=== PATIENT | female | born 1985 | race Hispanic/Latino ===

== ENCOUNTER 2025-09-03 09:56 | Emergency (ER) | payer SELFPAY ==
[~2025-09-03] VITALS: Ht 152.4 cm; Wt 64.9 kg
--- NOTE | 2025-09-03 10:05 | ERN ---
General Chief Complaint: Vaginal Bleeding Stated Complaint: VAG BLEED Time Seen by MD: 09:58 Source: patient History of Present Illness Initial Comments Patient is a 40 year old female coming in with a vaginal bleed and abdominal discomfort. Patient states that she is a at possible six weeks by last menstruations. She states that she has been noticing some spotting for the last two days this morning she presented with a even more discomfort in the lower abdominal region so she is here for further evaluation. Patient has not been seen by an OBGYN yet. Allergies: Coded Allergies: No Known Drug Allergies (Unverified Allergy, Unknown, 09/03/25) ROS Dictation CONSTITUTIONAL: No chills, no fever, no weakness, no diaphoresis, no malaise. HEAD/FACE: No signs of trauma. EENT: No eye pain, no blurred vision, no tearing, no double vision, no ear pain, no ear discharge, no nose pain, no nasal congestion, no throat pain, no throat swelling, no mouth pain. RESPIRATORY: No cough, no orthopnea, no SOB, no stridor, no wheezing. CARDIOVASCULAR: No chest pain, no edema, no palpitations, no syncope. GASTROINTESTINAL/ABDOMINAL: abdominal pain, no constipation, no diarrhea, no nausea, no vomiting. GENITOURINARY: No abnormal discharge, no dysuria, no frequent urination, no hematuria. No complaints of pain in the genitals. MUSCULOSKELETAL: No back pain, no gout, no joint pain, no joint swelling, no muscle pain, no muscle stiffness, no neck pain. INTEGUMENTARY: No change in color, no change in hair/nails, no dryness, no lesion, no lumps, no rash. NEUROLOGICAL/PSYCH: No anxiety, not depressed, no emotional problem, no headache, no numbness, no pre-existing deficit, no history of seizures, no tr emors, no weakness. HEMATOLOGIC/LYMPHATIC: Not anemic, no history of blood clots, no apparent bleeding, no bruising, glands not swollen. All Systems Negative, Except as Noted. Physical Exam Physical Exam Dictation VITAL SIGNS: Reviewed. GENERAL APPEARANCE: Alert, oriented x3, no acute distress, obese. HEAD AND FACE: Non-traumatic. EYES: PERRL, pink conjunctivas, eyelid no trauma, anterior chamber clear. EARS: Pinnas intact and no signs of trauma or erythema. Ear canals clear and no discharge. TMs no erythema. NOSE: No discharge, no bleeding. OROPHARYNX: Mouth normal, teeth no caries, tongue pink. Pharynx clear, no erythema. Tonsils no exudates, no abscesses noted. Mucous membrane moist. NECK: Supple, non-tender, no thyromegaly, no masses, no JVD, no bruits. BREAST: Deferred. CHEST: No tenderness, no crepitus, no paradoxical movement, no retractions. LUNGS: Clear, well-ventilated, symmetric, no rales, no wheezing, no rhonchi, no stridor, good breath sounds bilaterally. HEART: Regular rate, regular rhythm, no murmur, no gallops. VASCULAR: No peripheral edema. ABDOMEN: Soft, positive bowel sounds, nondistended, no guarding, nontender, no rebound, no masses no hepatomegaly, no splenomegaly, no Bonds's sign, no hernias. RECTAL: Deferred. GENITAL: Deferred. NEUROLOGICAL: Normal speech, gross motor function intact, gross sensory function intact. MUSCULOSKELETAL: Neck nontender, full range of motion, back nontender, full range of motion. EXTREMITIES: Nontender, full range of motion. SKIN: Color pink, dry, no turgor, no rash, no lacerations, no abrasions, no contusions. LYMPHATICS: Deferred. Results Laboratory and Microbiology Lab and Micro Result Laboratory Tests Test 09/03/25 10:20 09/03/25 10:37 White Blood Count 10.2 K/uL (4.8-10.8) Red Blood Count 4.87 MIL/uL (4.00-5.50) Hemoglobin 14.2 g/dL (12.0-16.0) Hematocrit 43.9 % (36-48) Mean Corpuscular Volume 90.1 fL (79-99) Mean Corpuscular Hemoglobin 29.2 pg (27.0-33.0) Mean Corpuscular Hemoglobin Concent 32.3 g/dL (32.0-36.0) Red Cell Distribution Width 12.4 % (11.0-15.5) Platelet Count 348 K/uL (130-400) Mean Platelet Volume 10.2 fL (7.5-10.5) Immature Granulocyte % (Auto) 0.5 % (0-1) Neutrophils (%) (Auto) 71.9 % (40.0-77.0) Lymphocytes (%) (Auto) 16.8 % (21.0-51.0) L Monocytes (%) (Auto) 10.0 % (3.0-13.0) Eosinophils (%) (Auto) 0.3 % (0.0-8.0) Basophils (%) (Auto) 0.5 % (0.0-5.0) Neutrophils # (Auto) 7.3 K/uL (1.8-7.7) Lymphocytes # (Auto) 1.7 K/uL (1.0-4.8) Monocytes # (Auto) 1.0 K/uL (0.1-1.0) Eosinophils # (Auto) 0.03 K/uL (0.00-0.70) Basophils # (Auto) 0.05 K/uL (0.00-0.20) Absolute Immature Granulocyte (auto 0.05 K/uL (0-1) Nucleated Red Blood Cells 0.0 % (0.0-0.19) Sodium Level 136 mmol/L (136-145) Potassium Level 3.3 mmol/L (3.5-5.1) L Chloride Level 100 mmol/L (101-111) L Carbon Dioxide Level 30 mmol/L (21-32) Blood Urea Nitrogen 8 mg/dL (7-18) Creatinine 0.8 mg/dL (0.5-1.0) Glomerular Filtration Rate Calc 97 mL/min (>90) Random Glucose 84 mg/dL (70-105) Total Calcium 9.6 mg/dL (8.5-10.1) Human Chorionic Gonadotropin, Quant 72722 mIU/mL (0-5) H Urine Color YELLOW (YELLOW) Urine Appearance CLOUDY (CLEAR) H Urine pH 6.5 (5.0-8.0) Urine Specific [place] 1.019 (1.001-1.031) Urine Protein NEGATIVE mg/dL (NEGATIVE) Urine Glucose (UA) NEGATIVE mg/dL (NEGATIVE) Urine Ketones NEGATIVE mg/dL (NEGATIVE) Urine Occult Blood SMALL (NEGATIVE) H Urine Nitrate NEGATIVE (NEGATIVE) Urine Bilirubin NEGATIVE mg/dL (NEGATIVE) Urine Urobilinogen 0.2 mg/dL (0.2-1.0) Urine Leukocyte Esterase NEGATIVE [place]/uL Urine RBC 2-5 /HPF (0-1) H Urine WBC 0-1 /HPF (0-1) Urine Squamous Epithelial Cells FEW /HPF (0-2) Urine Amorphous Crystals (Auto) RARE /LPF (None Seen) Urine Bacteria Few /HPF (None Seen) Urine HCG, Qualitative POSITIVE (NEGATIVE) H Labs Reviewed?: Yes EKG/XRAY/US/CT/MRI EKG Comment 09/03/2025 time 11:06 a.m. Ventricular rate 69 Sinus rhythm [place] [address] wave elevation or depression MDM MDM: Differential diagnosis: Threatened miscarriage, miscarriage, early , Rationale: Tests considered and ordered secondary to shared decision making include: Previous outside records reviewed: Old ER visits. Risk of complication and/or morbidity or mortality of patient management: None Medications-Per medication reconciliation Need for hospitalization: Patient does not meet criteria for hospitalization. Need for emergency major/minor surgery: No Patient is a 40-year-old female coming in complaining of lower abdominal discomfort. Patient found out recently that she was . Ultrasound disclose an IUP possible six weeks gestation. Patient is feeling better symptoms have improved. Patient will be discharged in stable condition I did advise her abstaining from lifting anything heavy abstaining from sexual intercourse until evaluated by her PCP in his case her OBGYN. Patient will be discharged in stable condition with a diagnosis of early , threatened miscarriage. ED Course Orders Procedure Category Date Status Time Cbc With Differential LAB 09/03/25 Complete 10:02 Hcg,Quantitative LAB 09/03/25 Complete 10:02 ,Urine Test LAB 09/03/25 Complete 10:02 Urinalysis Profile LAB 09/03/25 Complete 10:02 12 Lead Ekg Tracing- EKG 09/03/25 Complete Technical 10:02 0.9%Nacl 1000ml (Ns PHA 09/03/25 Complete 1000ml) 10:30 Basic Metabolic Panel LAB 09/03/25 Complete 10:02 Us Ob <14 Weeks US 09/03/25 Taken 10:02 Current Medications Medications (Trade) Dose Ordered Sig/Cinthya Route PRN Reason Start Time Stop Time Status Last Admin Dose Admin Sodium Chloride 1,000 ml @ 0 mls/hr ONCE ONCE IV 09/03/25 10:30 09/03/25 10:31 DC 09/03/25 10:53 Vital Signs Date Time Temp Pulse Resp B/P (MAP) Pulse Ox O2 Delivery O2 Flow Rate FiO2 09/03/25 09:58 97.3 114 18 149/94 100 Room Air 0 DX & DISP Disposition: Discharge Departure Impression: Primary Impression: Miscarriage, threatened, early Condition: Stable Additional Instructions: FOLLOW-UP WITH PRIMARY CARE PROVIDER IN 1 TO 2 DAYS. TAKE MEDICATIONS DIRECTED HERE IN THE EMERGENCY ROOM. OKAY TO CONTINUE HOME MEDICATIONS UNLESS OTHERWISE DISCUSSED DURING YOUR VISIT IN THE EMERGENCY ROOM TODAY. RETURN TO YOUR NEAREST EMERGENCY ROOM IF SYMPTOMS WORSEN OR IF THERE IS NO IMPROVEMENT. CALL 911 IF YOU NEED IMMEDIATE ASSISTANCE. TAKE TYLENOL [id number] NEEDED AND IF NO CONTRAINDICATIONS ARE PRESENT. INCREASE ORAL HYDRATION. A WOUND CULTURE OR URINE CULTURE WAS ORDERED HERE IN THE EMERGENCY ROOM DEPARTMENT PLEASE FOLLOW-UP WITH PRIMARY CARE PROVIDER AND ADVISE THEM TO GET REPORTS FROM OUR FACILITY. IF YOU HAD ANY CRISTINA WRAP/SPLINTS THAT WERE APPLIED HERE, PLEASE DO NOT REMOVE THEM UNTIL YOU SEE YOUR PRIMARY CARE OR SPECIALTY. Referrals: Referrals: SELF,REFERRAL (PCP) ADDY PAUL MD Time of Disposition: 12:06 CARLOS BLANCAS MD Sep 03, 2025 10:05
[2025-09-03 10:25] LABS: IMMATURE GRANULOCYTE ABSOLUTE 0.05 K/uL (0-1); NUCLEATED RED BLOOD CELLS 0.0 % (0.0-0.19); PLATELET COUNT (AUTO) 348 K/uL (130-400); RED BLOOD CELL COUNT(AUTO) 4.87 MIL/uL (4.00-5.50); RED CELL DISTRIBUTION WIDTH 12.4 % (11.0-15.5); WHITE BLOOD COUNT (AUTO) 10.2 K/uL (4.8-10.8)
[2025-09-03 10:36] LABS: CREATININE 0.8 mg/dL (0.5-1.0); GLOMERULAR FILTR. RATE CALC 97.0 mL/min (>90); GLUCOSE,RANDOM 84.0 mg/dL (70-105); SODIUM SERUM 136.0 mmol/L (136-145); UREA NITROGEN, BLOOD 8.0 mg/dL (7-18)
[2025-09-03] MEDS: 0.9%NACL 1000ML 1,000 ML IV ONE (10:53)
[2025-09-03 11:01] LABS: HCG,QUANTITATIVE 61018.0 mIU/mL (0-5)
[2025-09-03 11:02] LABS: APPEARANCE,URINE CLOUDY (CLEAR); GLUCOSE, URINE (UA) NEGATIVE (NEGATIVE); LEUKOCYTE ESTERASE ,URINE NEGATIVE Leu/uL (NEGATIVE); NITRATE,URINE NEGATIVE (NEGATIVE); OCCULT BLOOD,URINE SMALL (NEGATIVE)
[2025-09-03 11:03] LABS: ADD UA MICROSCOPIC YES
[2025-09-03 11:05] LABS: HCG,QUALITATIVE URINE POSITIVE (NEGATIVE)
[2025-09-03 11:23] LABS: SQUAMOUS EPITHELIAL CELL,UR FEW /HPF (0-2)
--- NOTE | 2025-09-03 11:42 | EKG ---
[facility] Test Date: 2025-09-03 Test Time: 11:06:48 Pat Name: RONALDO HUSTON Department: ED Room: Gender: F Intr[employer] Specialist: 07 : 1985 Requested By: CARLOS BLANCAS Order Number: [id number] Reading MD: Danielle Matthews Measurements Intervals [place] Rate: 69 P: 52 MO: 141 QRS: 31 QRSD: 75 T: 29 QT: 352 QTc: 377 Interpretive Statements Sinus rhythm No previous ECG available for comparison Electronically Signed On 09-04-2025 12:32:55 HARNESS TIER by Danielle Matthews Please click the below link to view image of tracing.
--- NOTE | 2025-09-03 13:04 | HMCIMG ---
EXAM: US Obstetrical, Complete <14 weeks. CLINICAL HISTORY: abd pain TECHNIQUE: Transabdominal imaging of the maternal pelvis and a <14 week gestation with image documentation. COMPARISON: None provided. FINDINGS: GESTATION: Gestational sac mean diameter is 2.00 cm corresponding to 5 weeks and 5 days gestation. [place]-rump length is 1.17 cm corresponding to 7 weeks and 2 days gestation. Ultrasound age of 6 weeks and 3 days. UTERUS: Unremarkable. No myometrial mass. CERVIX: Closed. Unremarkable. OVARIES: Unremarkable with appropriate flow. No mass. FREE FLUID: No free fluid. IMPRESSION: 1. Intrauterine with ultrasound age of 6 weeks and 3 days. /Pretty
[2025-09-03 13:13] VITALS: BP 139/79; PULSE 93; RESP 16; TEMP 97.8; O2SAT 100
== END 2025-09-03 13:22 | disposition home or self-care (01) ==
LOC: EDH 09:56
DX: O20.0 Threatened abortion (principal); Z3A.01 Less than 8 weeks gestation of pregnancy
CPT/HCPCS: 99284; 96360; 76801; 96361; 80048; 84702; 85025; 81001; 81025; 36415; 93005; J7030